=== PATIENT | male | born 1975 | race Caucasian/White ===

== ENCOUNTER 2017-12-03 15:58 | Emergency (ER) | payer OTHER ==
[~2017-12-03] VITALS: Ht 177.8 cm; Wt 81.6 kg
[2017-12-03 16:00] VITALS: BP_SYST 122
[2017-12-03 16:35] VITALS: BP_SYST 124
== END 2017-12-03 16:35 | disposition home or self-care (01) ==
LOC: SED 15:58
DX: L98.8 Other specified disorders of the skin and subcutaneous tissue (principal); F17.210 Nicotine dependence, cigarettes, uncomplicated
CPT/HCPCS: 99281